=== PATIENT | female | born 1965 ===

== ENCOUNTER 2021-06-12 13:54 | Emergency (ER) | payer MEDICAID, OTHER ==
[~2021-06-12] VITALS: Ht 160 cm; Wt 49.9 kg
[2021-06-12] MEDS ORDERED: KETOROLAC TROMETH 60MG/2ML VIAL IM ONE (14:30)
[2021-06-12 14:33] VITALS: BP 137/80
[2021-06-12] MEDS ORDERED: ACET-1080 PO (14:45)
[2021-06-12] MEDS ORDERED: PRED20TA2 PO (14:45)
== END 2021-06-12 14:48 | disposition home or self-care (01) ==
LOC: ER 13:54
DX: G56.01 Carpal tunnel syndrome, right upper limb (principal)
CPT/HCPCS: 96372; 99283; J1885; 29125